=== PATIENT | male | born 1945 | race Caucasian/White ===

== ENCOUNTER 2018-06-29 08:50 | Day surgery (SDC) ==
[2018-06-29] MEDS: TETRACAINE 0.5% UNIT-DOSE OP PRN ×2 (09:20→09:42)
[2018-06-29] MEDS: BETADINE OPTH PREP OP PRN ×2 (09:21→09:43)
[2018-06-29] MEDS: CYCLOGYL 2% OPTH OP PRN ×3 (09:22→09:32)
[2018-06-29 09:36] VITALS: TEMP 98.4
[2018-06-29] MEDS ORDERED: BSS WITH EPINEPHRINE OP ONE (09:37)
[2018-06-29] MEDS ORDERED: DEX-MOXI-KETOR OPTH INJ 1/0.5/0.4 MG/ML IO ONE (09:37)
[2018-06-29] MEDS ORDERED: LIDOCAINE 1%/PHENYLEPHRINE 1.5% BSS (SURGERY) INTRAOCULA ONE (09:37)
[2018-06-29] MEDS ORDERED: ZOFRAN 4 MG/2 ML IVP ONE (09:37)
[2018-06-29] MEDS ORDERED: ZOFRAN 4 MG/2 ML ONE (09:55)
[2018-06-29] MEDS ORDERED: SUBLIMAZE ONE (09:55)
[2018-06-29] MEDS ORDERED: VERSED ONE (09:55)
[2018-06-29 12:34] VITALS: BP 128/73
== END 2018-06-29 10:45 | disposition home or self-care (01) ==
LOC: SURG 08:50
PROVIDERS: ATTEND Ophthalmology
DX: H25.811 Combined forms of age-related cataract, right eye (principal)

== ENCOUNTER 2018-07-13 06:53 | Day surgery (SDC) ==
[2018-07-13] MEDS: TETRACAINE 0.5% UNIT-DOSE OP PRN ×2 (07:00→08:00)
[2018-07-13] MEDS: BETADINE OPTH PREP OP PRN ×2 (07:01→08:00)
[2018-07-13] MEDS: CYCLOGYL 2% OPTH OP PRN ×3 (07:02→07:12)
[2018-07-13 07:32] VITALS: TEMP 97.5
[2018-07-13] MEDS ORDERED: DEX-MOXI-KETOR OPTH INJ 1/0.5/0.4 MG/ML IO ONE (07:32)
[2018-07-13] MEDS ORDERED: BSS WITH EPINEPHRINE OP ONE (07:32)
[2018-07-13] MEDS ORDERED: ZOFRAN 4 MG/2 ML IVP ONE (07:32)
[2018-07-13] MEDS ORDERED: LIDOCAINE 1%/PHENYLEPHRINE 1.5% BSS (SURGERY) INTRAOCULA ONE (07:32)
[2018-07-13] MEDS ORDERED: ZOFRAN 4 MG/2 ML ONE (08:12)
[2018-07-13] MEDS ORDERED: SUBLIMAZE ONE (08:12)
[2018-07-13] MEDS ORDERED: VERSED ONE (08:12)
[2018-07-15 15:30] VITALS: BP 136/69
== END 2018-07-13 09:05 | disposition home or self-care (01) ==
LOC: SURG 06:53
PROVIDERS: ATTEND Ophthalmology
DX: H25.812 Combined forms of age-related cataract, left eye (principal)